=== PATIENT | male | born 1995 | race African-American/Black ===

== ENCOUNTER 2020-12-21 10:54 | Emergency (ER) | payer SELFPAY ==
[2020-12-21 10:58] VITALS: BP 106/89; PULSE 92; RESP 16; TEMP 36.2; O2SAT 99
[2020-12-21 11:49] LABS: Basophils Percent Auto 0.2 % (0.2-1.2); Eosinophils Percent Auto 0.3 % (0-4.4); Hematocrit 45.8 % (42.0-52.0); Hemoglobin 15.3 g/dL (14.0-18.0); Immature Granulocyte Absolute 0.03 K/mm3 (0.00-0.031); Immature Granulocyte Percent A 0.3 % (0-0.5); Lymphocytes Absolute Auto 0.57 K/mm3 (0.9-3.2); Lymphocytes Percent Auto 6.5 % (18.3-44.2); Mean Corpuscular HGB Conc 33.4 g/dl (32-36); Mean Corpuscular Hemoglobin 27.8 pg (26-34); Mean Corpuscular Volume 83.1 fl (80-100); Mean Platelet Volume 10.2 fl (7.4-10.4); Monocytes Absolute Auto 0.5 K/mm3 (0.1-0.6); Monocytes Percent Auto 6.1 % (2.6-8.5); Neutrophils Absolute Auto 7.6 K/mm3 (1.3-6.7); Neutrophils Percent Auto 86.6 % (45.5-73.1); Platelet Count Result 211 k/mm3 (150-375); Red Blood Count 5.51 M/mm3 (4.6-6.20); Red Cell Distribution Width 13.2 % (11.5-14.5); White Blood Count 8.7 K/mm3 (4.5-10.0)
[2020-12-21 11:58] LABS: Add Urine Microscopic? YES; Appearance Urine Clear (Clear); Bilirubin Urine Negative (Negative); Blood Urine Negative (Negative); Color Urine Yellow (Yellow); Glucose Urine UA Negative (Negative); Ketones Urine 2+ mg/dL (Negative); Leukocyte Esterase Ur Negative LEU/UL (Negative); Mucus Urine Few /lpf; Nitrate Urine Negative (Negative); Protein Urine 2+ mg/dL (Negative); RBC Urine 0-2 /hpf (0-2); WBC Urine 0-3 /hpf
[2020-12-21 12:05] LABS: Alanine Aminotransferase 38 U/L (4-50); Alkaline Phosphatase 48 U/L (38-126); Anion Gap 11 mmol/L (8-16); Aspartate Amino Transferase 47 U/L (17-59); Bilirubin,Total 0.6 mg/dL (0.2-1.3); Blood Urea Nitrogen 13 mg/dL (9-20); Calcium 9.2 mg/dL (8.4-10.2); Carbon Dioxide 29 mmol/L (22-30); Chloride 102 mmol/L (98-107); Estimated CRCL calculation 133 ml/min; Estimated Glomerular Filt Rate > 60; Glucose 121 mg/dL (75-110); Lipase 55 U/L (23-300); Potassium 3.9 mmol/L (3.4-5.0); Sodium 142 mmol/L (137-145)
[2020-12-21 12:07] LABS: Specific Grav Ur 1.031 (1.001-1.035)
--- NOTE | 2020-12-21 12:16 | ED.NAVMDI ---
HPI - Nausea/Vomiting/Diarrhea General Chief complaint: Nausea/Vomiting/Diarrhea Stated complaint: vomiting Time Seen by Provider: 12/21/20 12:14 History of Present Illness HPI Narrative: Nausea, vomiting, and diarrhea since last night. Associated with abdominal cramping diaphoresis and fatigue. He has not been able to keep anything down. 2 other members of his household have the same symptoms. No cough, congestion, fever. Related Data Allergies Allergy/AdvReac Type Severity Reaction Status Date / Time No Known Allergies Allergy Verified 12/21/20 11:26 Review of Systems Review of Systems: All systems reviewed & are unremarkable except as noted in HPI and below Constitutional: Constitutional: Denies chills, Reports fatigue, Denies fever(s) and Denies weakness Eyes: Eyes: Reports no additional eye complaints ENT: Reports system reviewed and no additional complaints, except as documented Cardiovascular: Cardiovascular: Denies chest pain Respiratory: Respiratory: Denies dyspnea Gastrointestinal: Gastrointestinal: Reports abdominal pain, Reports diarrhea, Reports nausea and Reports vomiting Genitourinary: Genitourinary: Reports no additional male genitourinary complaints Neurologic: Denies dizziness [facility] Social History Social History (Updated 12/23/20 @ 15:52 by Darian Cuellar MD) Smoking status: Never smoker Exam Const: General: no acute distress and alert Orientation/consciousness: patient oriented x3 HENMT: Mouth: Yes dry mucous membranes Neck: Neck: normal visual inspection Resp: Effort & Inspection: normal respiratory effort Auscultation: clear to auscultation bilaterally, no rales, no rhonchi and no wheezes Cardio: Jugular venous distension: no JVD Rate: regular rate Rhythm: regular rhythm Heart sounds: no murmurs GI: Inspection: non-distended GI Palp: Yes Soft to palpation and No Tenderness to palpation present (GI) Skin: General skin exam: normal color Neuro: General: patient oriented x3 and moves all extremities Speech: normal speech Extrem: General: no edema Psych: Appearance: well kempt Affect: normal affect Course Vital Signs Vital signs: Vital Signs Temperature 36.2 C L 12/21/20 10:58 Pulse Rate 92 12/21/20 10:58 Respiratory Rate 16 12/21/20 10:58 Blood Pressure 106/89 12/21/20 10:58 Pulse Oximetry 99 12/21/20 10:58 Temperature 36.2 C L 12/21/20 10:58 Pulse Rate 92 12/21/20 10:58 Respiratory Rate 16 12/21/20 10:58 Blood Pressure 106/89 12/21/20 10:58 Pulse Oximetry 99 12/21/20 10:58 MDM - Nausea/Vomiting/Diarrhea MDM Narrative Medical decision making narrative: History consistent with gastroenteritis. I ordered IV fluids and medications. His nurse was not able to get the IV initially. He then said that his needed the car for work and he had to leave. He was given PO zofran and a prescription for the same. Differential Diagnosis Differential diagnosis: Likely gastroenteritis and dehydration Medical Records Attestation: I reviewed the patient's medical records. Lab Data Attestation: I reviewed the patient's lab results. Result diagrams: 12/21/20 11:36 12/21/20 11:36 Labs: Lab Results 12/21/20 12/21/20 12/21/20 Range/Units 11:36 11:36 11:36 WBC 8.7 (4.5-10.0) K/mm3 RBC 5.51 (4.6-6.20) M/mm3 Hgb 15.3 (14.0-18.0) g/dL Hct 45.8 (42.0-52.0) % MCV 83.1 (80-100) fl MCH 27.8 (26-34) pg MCHC 33.4 (32-36) g/dl RDW 13.2 (11.5-14.5) % Plt Count 211 (150-375) k/mm3 MPV 10.2 (7.4-10.4) fl Immature Gran % (Auto) 0.3 (0-0.5) % Neut % (Auto) 86.6 H (45.5-73.1) % Lymph % (Auto) 6.5 L (18.3-44.2) % Harney % (Auto) 6.1 (2.6-8.5) % Eos % (Auto) 0.3 (0-4.4) % Baso % (Auto) 0.2 (0.2-1.2) % Lymph # (Auto) 0.57 L (0.9-3.2) K/mm3 Harney # (Auto) 0.5 (0.1-0.6) K/mm3 Eos # (Auto) 0.0 (0-0.3) K/mm3 Baso # (Auto) 0.0
--- NOTE | 2020-12-21 13:08 | PC.NURSE ---
this RN attempted to gain IV access 2 times and was unsuccessful. Will have another RN attempt.
[2020-12-21] MEDS: ONDANSETRON HCL ODT 4 MG TABLET PO (13:15)
== END 2020-12-21 13:20 | disposition home or self-care (01) ==
PROVIDERS: Physician Assistant; Emergency Provider Emergency Medicine
DX: K52.9 Noninfective gastroenteritis and colitis, unspecified (principal)
CPT/HCPCS: 36415; 80053; 81001; 83690; 85025; 99283; A9270

== ENCOUNTER 2025-03-19 11:39 | Emergency (ER) | payer SELFPAY ==
--- OUTSIDE RECORDS SUMMARY | 2025-03-19 11:41 | XMS_ITS | Clinical Summary ---
Author Organization [facility] Address [address] [place] [address] Care Team Providers Care Hearing Screener Name Role Phone Unknown, Notinfile Primary Care Provider Unavail able Allergies No known active allergies Medications ondansetron (ZOFRAN) 4 mg tablet Take 1 tablet (4 mg total) by mouth every 6 (six) hours 12 tablet 03/19/2023 Active Active Problems No known active problems Immunizations Immunization Administration Dates Next Due Tdap 03/19/2023 Social History Tobacco Use Types Packs/Day Years Used Date Smoking Tobacco: Never Assessed Personal Safety Answer Date Recorded Have you ever been in or are you currently in a harmful physical or emotional relationship or is someone making you feel afraid or unsafe? 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 Gender Identity Not on file Sexual Orientation Not on file Obstetrics History Last Filed Vital Signs Vital Sign Reading Time Taken Comments Blood Pressure 169/104 03/19/2023 9:22 PM CDT Pulse 71 03/19/2023 9:22 PM CDT Temperature 36.8 C (98.2 F) 03/19/2023 6:55 PM CDT Respiratory Rate 19 03/19/2023 9:22 PM CDT Oxygen Saturation 100% 03/19/2023 9:22 PM CDT Inhaled Oxygen Concentration - - Weight 117.9 kg (260 lb) 03/19/2023 5:08 PM CDT Height 185.4 cm (6' 1) 01/14/2016 3:27 PM CDT Body Mass Index 34.3 01/14/2016 3:27 PM CDT Plan of Treatment Health Maintenance Due Date Last Done Comments Depression Screening 1997 Hepatitis C Screening 1997 Varicella Vaccines (1 of 2 - 13+ 2-dose series) 2010 Hepatitis B Screening 2015 Regular Well Visit/Exam 18-64 2015 Influenza Vaccine (#1) 2025 DTaP/Tdap/Td Vaccine (2 - Td or Tdap) 03/19/2033 03/19/2023 HPV Vaccines Aged Out No longer eligi ble based on patient's age to complete this topic Pneumococcal vaccine <65 Aged Out No longer eligible based on patient's age to complete this topic Insurance IDPA IDKS Care Teams Hearing Screener Relationship Specialty Start Date End Date Unknown, Notinfile PCP - General 03/19/23
--- OUTSIDE RECORDS SUMMARY | 2025-03-19 11:41 | XMS_ITS | Referral Summary ---
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
[2025-03-19 11:47] VITALS: BP 165/114; PULSE 127; RESP 24; TEMP 37.1; O2SAT 100
--- NOTE | 2025-03-19 11:56 | ED_ITS ---
HPI - General Adult General Chief complaint: Environmental Exposure Stated complaint: Heat exhaustion-leg cramps Time Seen by Provider: 03/19/25 11:49 History of Present Illness HPI narrative: Pt has been working outside in the heat the last tow days. Pt started feeling fatigued and dizzy and was sweating profusely so his coworkers called 911. Pt has some cramps in his legs and is sweating profusely and is very fatigued. Pt denies ENGLISH ofr CP. Related Data Allergies Allergy/AdvReac Type Severity Reaction Status Date / Time No Known Allergies Allergy Verified 03/19/25 11:40 Review of Systems 2 Review of Systems: All systems reviewed & are unremarkable except as noted in HPI and below PMFSH Social History Social History (Updated 12/23/20 @ 15:52 by Darian Cuellar MD) Smoking status: Never smoker Exam 2 Const: General: cooperative, anxious and well nourished O rientation/consciousness: patient oriented x3 Limitations: no limitations HENMT: Face and sinus: dry mucous membranes Eyes: Pupils: Equal, round and reactive pupils present EOM: EOMs intact bilaterally Neck: Neck: normal visual inspection Chest: Chest palpation & inspection: normal inspection of the chest Resp: Effort & Inspection: normal respiratory effort Auscultation: clear to auscultation bilaterally Cardio: Rate: tachycardic Course Vital Signs Vital signs: Vital Signs Temperature 98.7 F 03/19/25 11:47 Pulse Rate 127 H 03/19/25 11:47 Respiratory Rate 24 H 03/19/25 11:47 Blood Pressure 165/114 H 03/19/25 11:47 Pulse Oximetry 100 03/19/25 11:47 Oxygen Delivery Room Air 03/19/25 11:47 Temperature 98.7 F 03/19/25 11:47 Pulse Rate 86 03/19/25 15:28 Respiratory Rate 20 03/19/25 15:28 Blood Pressure 151/94 H 03/19/25 15:28 Pulse Oximetry 100 03/19/25 15:28 Oxygen Delivery Room Air 03/19/25 11:47 Medical Decision Making [facility] Narrative Medical decision making narrative: Pt presents with lethargy cramps and profuse diaphorese after working in heat last two days. Pt appears to have heat exhaustion. will check renal function and cpk to rule out rhabdo. Will give 2 L fluids and valium for cramps. Pt has elevated cr and elevated calcium. Pt does not want be admitted for further fluids and repeat labs. Pt is willing to sign out ama. Pt says he will follow up to get repeat labs to make sure creatinine normalizes. will give off work tomorrow. encouraged to return if worse. Vital Signs Vital Signs: Vital Signs Temperature 98.7 F 03/19/25 11:47 Pulse Rate 127 H 03/19/25 11:47 Respiratory Rate 24 H 03/19/25 11:47 Blood Pressure 165/114 H 03/19/25 11:47 Pulse Oximetry 100 03/19/25 11:47 Oxygen Delivery Room Air 03/19/25 11:47 Temperature 98.7 F 03/19/25 11:47 Pulse Rate 86 03/19/25 15:28 Respiratory Rate 20 03/19/25 15:28 Blood Pressure 151/94 H 03/19/25 15:28 Pulse Oximetry 100 03/19/25 15:28 Oxygen Delivery Room Air 03/19/25 11:47 Lab Data 03/19/25 11:56 03/19/25 12:43 Labs: Lab Results 03/19/25 03/19/25 03/19/25 Range/Units 11:56 12:00 12:43 WBC 14.4 H (4.5-10.0) K/mm3 RBC 6.36 H (4.6-6.20) M/mm3 Hgb 17.6 (14.0-18.0) g/dL Hct 51.7 (42.0-52.0) % MCV 81.3 (80-100) fl MCH 27.7 (26-34) pg MCHC 34.0 (32-36) g/dl RDW 13.0 (11.5-14.5) % Plt Count 299 (150-375) k/mm3 MPV 9.9 (7.4-10.4) fl Immature Gran % (Auto) 0.6 H (0-0.5) % Neut % (Auto) 63.2 (45.5-73.1) % Lymph % (Auto) 26.4 (18.3-44.2) % Letcher % (Auto) 8.7 H (2.6-8.5) % Eos % (Auto) 0.6 (0-4.4) % Baso % (Auto) 0.5 (0.2-1.2) % Lymph # (Auto) 3.81 H (0.9-3.2) K/mm3 Letcher # (Auto) 1.3 H (0.1-0.6) K/mm3 Eos # (Auto) 0.1 (0-0.3) K/mm3 Baso # (Auto) 0.1 (0.0-0.1) K/mm3 Abs Immat Gran (auto) 0.08 H (0.00-0.031) K/mm3 Absolute Neuts (auto) 9.1 H (1.3-6.7) K/mm3 Absolute Nucleated RBC 0.000 (0.0-0.012) K/mm3 Nucleated RBC % 0.0 (0.0-0.2) % Sodium 97 L* 138 (137-145) mmol/L Potassium 3.4 (3.4-5.0) mmol/L Chloride 98 (98-107) mmol/L Carbon Dioxide 17 L (22-30) mmol/L Anion Gap -18 L (4-12) mmol/L BUN 18 (9-20) mg/dL Creatinine 3.18 H (0.7-1.3) mg/dL Estim Creat Clear Calc 43 ml/min Estimated GFR 23 L (59 - ) Glucose 89 (65-110) mg/dL POC Capillary Glucose 104 (65-105) mg/dl Calcium 11.9 H (8.4-10.2) mg/dL Total Bilirubin 0.8 (0.2-1.3) mg/dL AST 52 (17-59) U/L ALT 41 (6-50) U/L Alkaline Phosphatase 79 (38-126) U/L Total Creatine Kinase 662 H (55-170) U/L Total Protein 11.7 H (6.3-8.2) g/dL Albumin 5.9 H (3.5-5.1) g/dL Urine Color (Yellow) Urine Appearance (Clear) Urine pH (5.0-9.0) Ur Specific Overbrook (1.001-1.035) Urine Protein (Negative) mg/dL Urine Glucose (UA) (Negative) mg/dL Urine Ketones (Negative) mg/dL Ur Blood (Man) (Negative) Urine Nitrate (Negative) Urine Bilirubin (Negative) Urine Urobilinogen (<2.0) mg/dL Add Ur Microanalysis Leukocyte Esterase Rfl (Negative) SAIDA/UL Urine RBC (0-2) /hpf Urine WBC (0-3) /hpf Ur Squamous Epith Cells (Few) /hpf Urine Bacteria /hpf Urine Casts Hyaline Casts (None) /lpf 03/19/25 Range/Units 13:34 WBC (4.5-10.0) K/mm3 RBC (4.6-6.20) M/mm3 Hgb (14.0-18.0) g/dL Hct (42.0-52.0) % MCV (80-100) fl MCH (26-34) pg MCHC (32-36) g/dl RDW (11.5-14.5) % Plt Count (150-375) k/mm3 MPV (7.4-10.4) fl Immature Gran % (Auto) (0-0.5) % Neut % (Auto) (45.5-73.1) % Lymph % (Auto) (18.3-44.2) % Letcher % (Auto) (2.6-8.5) % Eos % (Auto) (0-4.4) % Baso % (Auto) (0.2-1.2) % Lymph # (Auto) (0.9-3.2) K/mm3 Letcher # (Auto) (0.1-0.6) K/mm3 Eos # (Auto) (0-0.3) K/mm3 Baso # (Auto) (0.0-0.1) K/mm3 Abs Immat Gran (auto) (0.00-0.031) K/mm3 Absolute Neuts (auto) (1.3-6.7) K/mm3 Absolute Nucleated RBC (0.0-0.012) K/mm3 Nucleated RBC % (0.0-0.2) % Sodium (137-145) mmol/L Potassium (3.4-5.0) mmol/L Chloride (98-107) mmol/L Carbon Dioxide (22-30) mmol/L Anion Gap (4-12) mmol/L BUN (9-20) mg/dL Creatinine (0.7-1.3) mg/dL Estim Creat Clear Calc ml/min Estimated GFR (59 - ) Glucose (65-110) mg/dL POC Capillary Glucose (65-105) mg/dl Calcium (8.4-10.2) mg/dL Total Bilirubin (0.2-1.3) mg/dL AST (17-59) U/L ALT (6-50) U/L Alkaline Phosphatase (38-126) U/L Total Creatine Kinase (55-170) U/L Total Protein (6.3-8.2) g/dL Albumin (3.5-5.1) g/dL Urine Color Dark yellow (Yellow) Urine Appearance Cloudy H (Clear) Urine pH 5.5 (5.0-9.0) Ur Specific Overbrook 1.023 (1.001-1.035) Urine Protein 2+ H (Negative) mg/dL Urine Glucose (UA) Negative (Negative) mg/dL Urine Ketones Trace H (Negative) mg/dL Ur Blood (Man) Negative (Negative) Urine Nitrate Negative (Negative) Urine Bilirubin Negative (Negative) Urine Urobilinogen 1.0 (<2.0) mg/dL Add Ur Microanalysis Reviewed Leukocyte Esterase Rfl Trace H (Negative) SAIDA/UL Urine RBC 0-2 (0-2) /hpf Urine WBC 6-10 H (0-3) /hpf Ur Squamous Epith Cells Occasional (Few) /hpf Urine Bacteria None seen /hpf Urine Casts >20 Hyaline Casts Present (None) /lpf Discharge Plan Discharge Clinical Impression: Heat exhaustion Patient Disposition: Left Against Medical Advice Condition: Improved Instructions: Antibiotic Form Patient Language: Welsh Prescriptions: New diazepam [Valium] 5 mg tablet 5 mg PO TID PRN (Reason: muscle spasm) Qty: 7 0RF No Action ondansetron HCl [Zofran] 4 mg tablet 4 mg PO Q6H PRN (Reason: nausea and vomiting) Qty: 10 0RF Follow-up/Referrals: PHYSICIAN,HYDRAULIC DREDGE OPERATOR [Primary Care Provider] - Brigid Soto DO [Physician] -
[2025-03-19 12:00] LABS: Hematocrit 51.7 % (42.0-52.0); Hemoglobin 17.6 g/dL (14.0-18.0); Immature Granulocyte Percent A 0.6 % (0-0.5); Lymphocytes Absolute Auto 3.81 K/mm3 (0.9-3.2); Mean Corpuscular HGB Conc 34.0 g/dl (32-36); Mean Corpuscular Hemoglobin 27.7 pg (26-34); Mean Corpuscular Volume 81.3 fl (80-100); Nucleated Red Blood Cells Absolute Auto 0.000 K/mm3 (0.0-0.012); Nucleated Red Blood Cells Perc 0.0 % (0.0-0.2); Platelet Count Result 299 k/mm3 (150-375); Red Blood Count 6.36 M/mm3 (4.6-6.20); White Blood Count 14.4 K/mm3 (4.5-10.0)
[2025-03-19] MEDS: ONDANSETRON INJ 4 MG/2 ML VIAL IV PUSH (12:01)
[2025-03-19] MEDS: SODIUM CHLORIDE 0.9% IV 1,000 ML 999 ML IV CONT (12:03)
[2025-03-19 12:06] VITALS: RESP 34
[2025-03-19 12:25] VITALS: BP 148/89; PULSE 99; RESP 24; O2SAT 100
[2025-03-19 12:26] LABS: Alanine Aminotransferase 41 U/L (6-50); Albumin Level 5.9 g/dL (3.5-5.1); Alkaline Phosphatase 79 U/L (38-126); Anion Gap -18 mmol/L (4-12); Aspartate Amino Transferase 52 U/L (17-59); Bilirubin,Total 0.8 mg/dL (0.2-1.3); Blood Urea Nitrogen 18 mg/dL (9-20); Calcium 11.9 mg/dL (8.4-10.2); Carbon Dioxide 17 mmol/L (22-30); Chloride 98 mmol/L (98-107); Estimated CRCL calculation 43 ml/min; Estimated Glomerular Filt Rate 23; Glucose 89 mg/dL (65-110); Potassium 3.4 mmol/L (3.4-5.0); Sodium 97 mmol/L (137-145)
--- OUTSIDE RECORDS SUMMARY | 2025-03-19 12:31 | XMS_ITS | Clinical Summary ---
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
--- OUTSIDE RECORDS SUMMARY | 2025-03-19 12:31 | XMS_ITS | Referral Summary ---
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
--- OUTSIDE RECORDS SUMMARY | 2025-03-19 12:31 | XMS_ITS | Data Portability ---
[facility] Address [address] [facility] [place] [address] Assessment Encounter Date Assessment Date Assessment LastModified by Organization Details LastModified Time 08/22/2024 08/22/2024 Declined need for health insurance information. [email or web address] Not available 08/22/2024 16:22:20 Plan of Treatment Reminders Order Date Submit Date Provider Last Modified By Organization Details Last Modified Time Details Appointments None recorded. Lab RPR (rapid plasma reagin), serum 2023 024 [facility] [address] [place] [address], [address], [place], [address], 4 05:06:30 chlamydia trachomatis + neisseria gonorrhoeae + trichomonas vaginalis rRNA panel, KIANNA+probe 2023 024 [facility], [address] [place] [address], [address], [place], [address], 4 05:06:29 hepatitis panel (A+B+C), acute, serum 2023 024 [facility], [address] [place] [address], [address], [place], [address], 4 05:06:26 herpes simplex virus 1 + 2 IgG panel, serum or plasma 2023 024 [facility], [facility], [address], [place], [address], 4 05:06:28 HIV 1 + 2, meaningful use set 2023 024 [facility], [address], [address], [place], [address], 4 05:06:31 Referral None recorded. Procedures None recorded. Surgeries None recorded. Imaging None recorded. Medication Orders None recorded. Patient TargetsNo targets recorded. Patient InstructionsNo instructions recorded. Reason for Referral None Reported. Results Created Date Observation Date Name Description Value Unit Range Abnormal Flag Note LastModifiedBy Organization Detail LastModifiedTime 08/22/2008/23/2024 ACUTE HEPAT ITIS hep A Ab, IgM NEGATI VE negati ve A negat everett anti- HAV IgM resul t sugge sts no recen t or curre nt HAV infec tion. Not Available [facility] ([facility]) [address] [place], [address], 08/25/2024 05:06:26 08/22/20 24 08/23/2024 ACUTE HEPAT ITIS HBsAg screen NEGATI VE negati ve Not Available [facility] ([facility]) [address] [place], [address], 08/25/2024 05:06:26 08/22/20 24 08/23/2024 ACUTE HEPAT ITIS hep B core Ab, IgM NEGATI VE negati ve Not Available [facility] ([facility]) [address] [place], [address], 08/25/2024 05:06:26 08/22/20 24 08/23/2024 ACUTE HEPAT ITIS HCV Ab NON REACTI VE nonrea ctive Not Available [facility] ([facility]) [address] [place], [address], 08/25/2024 05:06:26 08/22/20 24 08/23/2024 INTER PRETA TION: interpretati on: Commen t Not infec max with HCV unles s early or acute infec tion is suspe cted (whic h may be delay ed in an immun ocomp romis ed indiv idual ), or other evide nce exist s to indic ate HCV infec tion. Not Available [facility] ([facility]) [address] [place], [address], 08/25/2024 05:06:27 08/22/20 24 08/23/2024 HSV 1 AND 2 AB, IGG hsv 1 IgG, type spec NON REACTI VE nonrea ctive Ple ase note refer ence inter isabell nelson e HSV-1 IgG testi ng perfo rmed using the [employer] HSV-1 IgG assay . Not Available [facility] ([facility]) [address] [facility], [place], [address], 08/25/2024 05:06:28 08/22/20 24 08/23/2024 HSV 1 AND 2 AB, IGG hsv 2 IgG, type spec REACTI VE nonrea ctive abnormal Ple ase note refer ence inter isabell nelson e Curre nt guide lines and recom menda tions do not recom mend routi ne scree alvaro for HSV-2 in asymp tomat ic indiv idual s, inclu ding those that are pregn ant. The detec tion of HSV-2 IgG antib odies in a singl e sampl e indic ates previ ous expos ure to HSV-2 but does not give infor matio n as to the site of HSV infec tion or the timin g of expos ure. The predi ctive value of posit everett and negat everett resul ts depen ds on the popul ation 's preva lence and the prete st likel ihood of HSV-2 . HSV-2 IgG testi ng perfo rmed using the [employer] HSV-2 IgG assay . Not Available [facility] ([facility]) [address] [facility], [place], [address], 08/25/2024 05:06:28 08/22/20 24 08/25/2024 CT, NG, TRICH VAG BY KIANNA chlamydia by KIANNA POSITI VE negati ve abnormal Not Available [facility] ([facility]) [address] [place], [address], 08/25/2024 05:06:29 08/22/20 24 08/25/2024 CT, NG, TRICH VAG BY KIANNA gonococcus by KIANNA NEGATI VE negati ve Not Available [facility] ([facility]) [address] [place], [address], 08/25/2024 05:06:29 08/22/20 24 08/25/2024 CT, NG, TRICH VAG BY KIANNA trich vag by KIANNA NEGATI VE negati ve Not Available [facility] ([facility]) [address] [place] [address], [address], 08/25/2024 05:06:29 08/22/20 24 08/23/2024 RPR, RFX QN RPR/C ONFIR M TP RPR NON REACTI VE nonrea ctive Not Available [facility] ([facility]) [address] [place] [address], [address], 08/25/2024 05:06:30 08/22/20 24 08/23/2024 HIV AB/P2 4 AG WITH REFLE X HIV Ab/P24 Ag screen NON REACTI VE nonrea ctive HIV-1 /HIV- 2 antib odies and HIV-1 p24 antig en were NOT detec max. There is no labor atory evide nce of HIV infec tion. HIV Negat everett Not Available [facility] ([facility]) [address] [place] [address], [id number], 08/25/2024 05:06:31 Result Notes None recorded. Medical Equipment None Reported. Allergies No known drug allergies Medications Name Sig Start Date Stop Date Status Note LastModified by Organization Details LastModified Time doxycycline hyclate 100 mg capsule TAKE 1 CAPSULE BY MOUTH TWICE A DAY FOR 7 DAYS active Not Available Not Available No t Available Vitals Date Recorded Body height Body mass index (BMI) Body weight Body temperature Heart rate Oxygen saturation Oxygen saturation in Arterial blood by Pulse oximetry Systolic And Diastolic Provider Name and Address Organization Details Last Updated DateTime 4 185.42 cm 37.9 kg/m2 405503. 01 g 97.7 [degF] 81 /min 95 % 95 % 161/94 mm[Hg] Umu Gallegos [place] - [place] 4 11:01:36 Social History Question Answer Notes LastModified by [employer] Details LastModified Time Tobacco Smoking Status Never Smoker Umu Gallegos MA null, [place] - [place] 08/22/2024 11:00:10 What Was The Date Of Your Most Recent Tobacco Screening? 08/22/2024 Information not available 08/22/2024 Sex: Unknown Functional Status Question Answer Note LastModified by [employer] Details LastModified Time Do you or have you ever used any other forms of tobacco or nicotine? Yes Information not available 08/22/2024 Do you or have you ever used smokeless tobacco? Never used smokeless tobacco Information not available 08/22/2024 Do you or have you ever used e-cigarettes or vape? Current user of electronic cigarettes Information not available 08/22/2024 Mental Status None recorded. Family History Nothing Reported. Medical History No medical history recorded. Past Encounters Encounter ID Performer Location Encounter Start Date Encounter Closed Date Diagnosis/Indication Diagnosis SNOMED-CT Code Diagnosis ICD10 Code Diagnosis Note [id number] MD [facility] ([id number]) [address] [place] [address] 08/22/2024 10:49:12 08/26/2024 11:38:27 Venereal disease screening 180157188 Z11.3 fu as needed w/ PCPsafe sex encouraged lab pending. will tailor treatment accordingl y upon receipt.co ndoms given Health Concerns Section Related Observation LastModified by Organization Detai ls LastModified Time None Recorded Concern Status LastModified by Organization Details LastModified Time None Recorded Advance Directives Directive None Recorded Payers Insurance Date Sequence Insurance Name Policy Number Policy Dutton Covered Member ID Dutton Member ID Guarantor Name 08/22/2024 1 *SELF PAY* Adamaris Knight 08/22/2024 SLIDING FEE SCHEDULE - DISCOUNT Rocky Knight 08/26/2024 1 [facility] ([facility] [id number] Rocky Knight [id number] Rocky Knight Notes Date Note Type Note Provider Name and Address Organization Details Recorded Time 08/22/2024 text/html ROS as noted in the HPI Pt presents to clinic requesting STI testing. He reports 3 female sex partners w/ in the past 6 mo. Pt denies nausea, vomiting, fever, chills, rash, cough, CP, SOB, CANALES, penile dc, lower abdominal discomfort, diarrhea, constipation and dysuria. JANES Shields Attn: Accounting,[address] [place], [address], [facility] 08/22/2024 16:22:35
--- NOTE | 2025-03-19 12:40 | PC.NURSE ---
Seizure pads applied to bed
[2025-03-19 12:44] LABS: Total Protein 11.7 g/dL (6.3-8.2)
[2025-03-19 13:12] LABS: Sodium 138 mmol/L (137-145)
[2025-03-19 13:37] VITALS: BP 139/82; PULSE 84; RESP 20; O2SAT 100
--- NOTE | 2025-03-19 13:38 | PC.NURSE ---
Pt declined Valium order earlier d/t feeling better. Pt states now muscles are cramping. made aware. Dr. Yosef ANDREWS to administer 5mg Valium IVP stat
[2025-03-19 13:39] LABS: Creatine Kinase 662 U/L (55-170)
[2025-03-19] MEDS: diazePAM INJ (*CRX) 10 MG/2 ML SYRINGE 5 MG IV PUSH (13:42)
[2025-03-19 14:00] LABS: Add Urine Microscopic? YES; Appearance Urine Cloudy (Clear); Glucose Urine UA Negative (Negative); Leukocyte Esterase Ur Trace LEU/UL (Negative); Need Manual Microscopic Reviewed; Nitrate Urine Negative (Negative); Non Pathogenic Casts >20; Specific Grav Ur 1.023 (1.001-1.035)
[2025-03-19 15:28] VITALS: BP 151/94; PULSE 86; RESP 20; O2SAT 100
== END 2025-03-19 15:31 | disposition left against medical advice (07) ==
PROVIDERS: Emergency Provider Emergency Medicine
DX: T67.5XXA Heat exhaustion, unspecified, initial encounter (principal); X30.XXXA Exposure to excessive natural heat, initial encounter
CPT/HCPCS: 36415; 80053; 81001; 82550; 82948; 84295; 85025; 87086; 96361; 96374; 96375; 99284; J2405; J3360; J7030